=== PATIENT | male | born 1955 | race Caucasian/White ===

== ENCOUNTER 2020-01-31 08:11 | Day surgery (SDC) | payer MEDICARE, BC ==
[2020-01-26 14:51] LABS: CLARITY,URINE CLEAR (Clear); COLOR,URINE YELLOW (Yellow); GLUCOSE, URINE NEGATIVE (Neg); KETONES,URINE NEGATIVE (Neg); LEUKOCYTE ESTERASE ,URINE NEGATIVE (Neg); NITRITES, URINE NEGATIVE (Neg); OCCULT BLOOD,URINE NEGATIVE (Neg); PROTEIN,URINE NEGATIVE (Neg); UA COLLECTION TYPE VOIDED; UROBILINOGEN,URINE 0.2 E.U/dL (0.2-1.0)
[2020-01-26 15:01] LABS: BASOPHILS % (AUTO) 0.6 % (0-1); EOSINOPHILS # (AUTO) 0.3 X10'3 (0-0.9); EOSINOPHILS % (AUTO) 3.7 % (0-6); MEAN CORPUSCULAR HEMOGLOBIN 32.5 PG (27.0-31.0); MEAN CORPUSCULAR HGB CONC 34.7 g/dL (33.0-36.5); MEAN CORPUSCULAR VOLUME 93.8 FL (78-98); MEAN PLATELET VOLUME 7.1 FL (7.4-10.4); MONOCYTES # (AUTO) 0.8 X10'3 (0-0.9); MONOCYTES % (AUTO) 10.1 % (2-12); NEUTROPHILS # (AUTO) 4.4 X10'3 (1.8-7.7); NEUTROPHILS % (AUTO) 58.6 % (42-75); PRE OP HEMATOCRIT 41.5 % (42.0-52.0); PRE OP HEMOGLOBIN 14.4 g/dL (14.0-17.9); PRE OP PLATELET COUNT 374 X10'3 (140-440); RED BLOOD COUNT 4.42 X10'6 (4.70-6.10); RED CELL DISTRIBUTION WIDTH 12.4 % (11.5-14.5)
[2020-01-26 15:11] LABS: ALBUMIN 3.5 G/DL (3.4-5.0); ALBUMIN/GLOBULIN RATIO 0.8 (1.1-1.5); ALKALINE PHOSPHATASE 122 IU/L (46-116); BLOOD UREA NITROGEN 25 MG/DL (7-18); BUN/CREATININE RATIO 25.8 (5.4-32.0); CHLORIDE 105 MMOL/L (99-107); CREATININE 0.97 MG/DL (0.60-1.10); PRE OP ALT 37 U/L (30-65); PRE OP ANION GAP 5 (8-16); PRE OP AST 15 U/L (10-37); PRE OP BILIRUB, TOTAL 0.2 MG/DL (0.0-1.0); PRE OP GLUCOSE 97 MG/DL (70-104); PRE OP SODIUM 141 MMOL/L (135-145); TOTAL CARBON DIOXIDE 30.7 MMOL/L (24-32); TOTAL PROTEIN 7.7 G/DL (6.4-8.2); eGFR 78 ML/MIN
[~2020-01-31] VITALS: Ht 177.8 cm; Wt 74.1 kg
[2020-01-31] VITALS (11 sets, daily range): BP systolic 126–142; BP diastolic 73–87
[~2020-01-31 08:11] MED LIST: BUPIVAcaine/PF 2.5 mg/ml (0.25%) 30ml vial ONE; IBUP-24 PO; clindamycin-Cleocin 900mg/D5W 50 ML IV ONE; famotidine 20mg tablet PO ONE; ringers solution, lacted 1,000 ML IV SCH
[2020-01-31] MEDS ORDERED: labetalol 20mg/4ml (5mg/ml) syringe IV PRN (12:25)
[2020-01-31] MEDS ORDERED: morphine 2 MG/ML inj. syringe IV PRN (12:25)
[2020-01-31] MEDS ORDERED: hydrALAZINE 20mg/ml inj. IV PRN (12:25)
[2020-01-31] MEDS ORDERED: ondansetron/PF 4mg/2ml inj IV PRN (12:25)
[2020-01-31] MEDS ORDERED: acetaminophen 1,000mg/100ml IV 100 ML IV PRN (12:25)
[2020-01-31] MEDS ORDERED: ringers solution, lacted 1,000 ML IV SCH (12:25)
[2020-01-31] MEDS ORDERED: meperidine/PF 25mg/ml syringe IV PRN ×2 (12:25)
[2020-01-31] MEDS ORDERED: morphine 4 MG/ML inj SYRINge IV PRN (12:25)
[2020-01-31] MEDS ORDERED: proCHLORperazine 10 MG/2 ml inj IV PRN (12:25)
[2020-01-31] MEDS ORDERED: acetaminophen 325mg tablet PO PRN (13:20)
[2020-01-31] MEDS ORDERED: sevoflurane 250ml liquid IH ONE (13:35)
[2020-01-31] MEDS ORDERED: midazolam 2 mg/2 ml injection ONE (13:40)
[2020-01-31] MEDS ORDERED: fentaNYL /PF 50mcg/ml 5ml ampule ONE (13:41)
[2020-01-31] MEDS ORDERED: LIDOcaine 2% 5ml jelly ONE (13:43)
[2020-01-31] MEDS ORDERED: propofol inj 20 ML IV ONE (14:01)
[2020-01-31] MEDS ORDERED: rocuronium 10mg/ml inj IV ONE (14:01)
[2020-01-31] MEDS ORDERED: LIDOcaine 2% (20mg/ml) 5ml vial ONE (14:01)
[2020-01-31] MEDS ORDERED: ondansetron/PF 4mg/2ml inj ONE (14:01)
[2020-01-31] MEDS ORDERED: dexamethasone sod phosphate 4mg/ml inj. ONE (14:01)
[2020-01-31] MEDS ORDERED: sugammadex 200mg/2ml injection IV ONE (15:25)
[2020-01-31] MEDS ORDERED: morphine 4 MG/ML inj SYRINge ONE (15:48)
--- NOTE | 2020-01-31 15:55 | NUR ---
Received from OR via BED , accompanied by Anesthesiologist DR BEATTY and report given by Anesthesiolgist. PATIENT WAKING UP, DENIES PAIN, V/S WNL, NEUROVASCULAR CHECKS INTACT, 20G PIV LUE, SCD ON, BANDAIDS TO LAP SIGHTS OF ABDOMEN CDI.
[2020-01-31] MEDS ORDERED: HYDROcodone/acetaminophen 10/325mg tab PO ONE (16:10)
[2020-01-31] MEDS: meperidine/PF 25mg/ml syringe IV PRN ×2 (16:12→16:21)
--- NOTE | 2020-01-31 17:15 | NUR ---
PATIENT A&OX4, DENIES PAIN, V/S WNL, NEUROVASCULAR CHECKS INTACT, 20G PIV D/C, SCD OFF, BANDAIDS TO LAP SIGHTS OF ABDOMEN CDI.. I HAVE REVIEWED D/C INSTRUCTIONS WITH PATIENT AND FAMILY HAVE VERBALIZED UNDERSTANDING.PATIENT WAS D/C HOME WITH ALL BELONGINGS AND FAMILY GAVE TRANSPORT HOME. PATIENT HAS VOIDED AND SCRIPTS [place] [facility]
== END 2020-01-31 17:15 | disposition home or self-care (01) ==
LOC: PAS 08:11
PROVIDERS: ATTEND Surgery
DX: K40.90 Unilateral inguinal hernia, without obstruction or gangrene, not specified as recurrent (principal); Z20.828 Contact with and (suspected) exposure to other viral communicable diseases; Z98.890 Other specified postprocedural states; Z79.899 Other long term (current) drug therapy; Z88.0 Allergy status to penicillin
CPT/HCPCS: 36415; 49650; 80053; 81003; 82948; 85025; 87635; 93005; C1758; C1781; C9399; J0131; J1100; J2001; J2175; J2250; J2270; J2405; J2704; J3010; J3490; A4215; A4618; J7120